=== PATIENT | male | born 1975 | race Caucasian/White ===

== ENCOUNTER 2018-11-15 21:25 | Emergency (ER) | payer BC, SELFPAY ==
--- NOTE | 2018-11-15 20:59 | DI.CT_ITS ---
SYMPTOMS/DIAGNOSIS: LEFT FACIAL PAIN MAXILLOFACIAL CT: CT examination of the maxillofacial region was performed utilizing multislice acquisition and multiplanar reconstruction. Visualized brain and intracranial vascular structures appear normal. The orbital structures appear normal. There is mucoperiosteal thickening and a small quantity of fluid in the maxillary and ethmoid sinuses bilaterally. Mild mucoperiosteal thickening of the sphenoid sinuses and to a lesser degree frontal sinuses noted as well. There is narrowing of the infundibula of the ostiomeatal complex of the maxillary antra bilaterally. No bony abnormality seen. The temporal bone structures appear intact bilaterally and mastoid air cells as formed are well aerated. No abnormality of the middle ear cavity seen. CONCLUSION: Findings consistent with chronic pansinusitis, predominantly involving the maxillary and ethmoid sinuses.
--- NOTE | 2018-11-15 20:59 | DI.RAD_ITS ---
SYMPTOMS/DIAGNOSIS: COUGH PA AND LATERAL CHEST: The cardiac and mediastinal contours have a normal appearance. The lungs are well inflated and clear. No infiltrate, effusion or pneumothorax is seen. IMPRESSION: Negative chest x-ray.
== END 2018-11-18 15:42 ==
LOC: ER 12-16 11:49
PROVIDERS: Emergency Provider Emergency Medicine
DX: J20.9 Acute bronchitis, unspecified (principal); J01.90 Acute sinusitis, unspecified; R11.2 Nausea with vomiting, unspecified
CPT/HCPCS: 36415; 96374; 99285; 70487; 71046; 99284